=== PATIENT | female | born 1945 | race American Indian/Alaskan Native ===

== ENCOUNTER 2018-06-22 15:30 | Inpatient (IN) | payer MEDICARE, BC ==
[2018-06-20 03:23] VITALS: BMI 34.0
[2018-06-22] MEDS: Albuterol-Ipratrop 3 mg / 0.5 (3 ml) UD IH SCH ×2 (17:27→19:27)
--- NOTE | 2018-06-22 18:38 | CP.PCM.HP ---
History of Present Illness - History of Present Illness History of Present Illness: 73 yo female with history of HTN, HLD and Asthma brought in and admitted in [facility] on 06/19/18 after she suddenly had numbness and weakness of the left side which was preceded with right sided headache. 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 When patient was hemodynamically and neurologically stable she was transferred to [facility] and admitted in Acute Rehab to continue her therapy. Present on Admission - Present on Admission Any Indicators Present on Admission: No History of DVT/PE: No History of Uncontrolled Diabetes: No Urinary Catheter: No Decubitus Ulcer Present: No Review of Systems - Review of Systems All systems: reviewed and no additional remarkable complaints except (aside from those mentioned above, 12 point system review were negative by me) Past Patient History - Infectious Disease Hx of Infectious Diseases: None - Tetanus Immunizations Tetanus Immunization: Unknown - Past Medical History & Family History Past Medical History?: Yes - Past Social History Smoking Status: Former Smoker Chewing Tobacco Use: No Cigar Use: No Alcohol: Social Drugs: Denies Home Situation {Lives}: With Family - CARDIAC Hx Hypertension: Yes - PULMONARY Hx Asthma: Yes (last attack 09/2013) - NEUROLOGICAL Hx Neurological Disorder: Yes HX Cerebrovascular Accident: Yes (05/2018) Other/Comment: occasional numbness and tingling in arms b/l - HEENT Hx HEENT Problems: Yes Hx Cataracts: Yes (left eye) - RENAL Hx Chronic Kidney Disease: No - ENDOCRINE/METABOLIC Hx Endocrine Disorders: No - HEMATOLOGICAL/ONCOLOGICAL Hx Anemia: Yes - INTEGUMENTARY Hx Dermatological Problems: No - MUSCULOSKELETAL/RHEUMATOLOGICAL Hx Arthritis: Yes (Maurizio shoulders) Hx Falls: No Hx Fractures: Yes (R hand Fx) - GASTROINTESTINAL Hx Gastrointestinal Disorders: No - GENITOURINARY/GYNECOLOGICAL Hx Genitourinary Disorders: No - PSYCHIATRIC Hx Psychophysiologic Disorder: No Hx Substance Use: No - SURGICAL HISTORY Hx Hysterectomy: Yes Hx Tonsillectomy: Yes (1954) - ANESTHESIA Hx Anesthesia: Yes Hx Anesthesia Reactions: No Hx Malignant Hyperthermia: No Meds Allergies/Adverse Reactions: Allergies Allergy/AdvReac Type Severity Reaction Status Date / Time No Known Allergies Allergy Verified 04/18/14 14:37 Physical Exam - Constitutional Appears: No Acute Distress - Head Exam Head Exam: ATRAUMATIC - Eye Exam Eye Exam: absent: Scleral icterus - ENT Exam ENT Exam: Mucous Membranes Moist - Neck Exam Neck exam: Negative for: Meningismus - Respiratory Exam Respiratory Exam: absent: Rales, Rhonchi, Wheezes, Respiratory Distress - Cardiovascular Exam Cardiovascular Exam: REGULAR RHYTHM, +S1, +S2 - GI/Abdominal Exam GI & Abdominal Exam: Soft. absent: Tenderness - Rectal Exam Rectal Exam: Deferred - Extremities Exam Extremities exam: Negative for: calf tenderness, pedal edema - Back Exam Back exam: absent: tenderness - Neurological Exam Neurological exam: Alert, Oriented x3 - Psychiatric Exam Psychiatric exam: Normal Affect - Skin Skin Exam: Dry, Intact Results - Vital Signs Recent Vital Signs: Last Vital Signs Temp 97.3 F L 06/22/18 16:00 Pulse 62 06/22/18 16:41 Resp 18 06/22/18 16:41 BP 150/81 06/22/18 16:00 Pulse Ox 99 06/22/18 16:41 Assessment & Plan - Assessment and Plan (Free Text) Assessment: 73 yo female with history of HTN, HLD and Asthma brought in and admitted in [facility] on 06/19/18 after she suddenly had numbness and weakness of the left side which was preceded with right sided headache. 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 When patient was hemodynamically and neurologically stable she was transferred to [facility] and admitted in Acute Rehab to continue her therapy. 1. Acute Right Basal Ganglia Infarct physiatry consult with Dr Garcia continue PT/OT continue Plavix, ASA, statin and BP control 2. HTN BP stable continue Amlodipine, Hydralazine, HCTZ, Lisinopril, Metoprolol 3. HLD continue Lipitor 10mg PO daily 4. Asthma asymptomatic 5. DVT prophylaxis Lovenox 40mg SC daily
[2018-06-22] MEDS: Ergocalciferol 50,000 Intl Units Cap PO SCH (19:00)
--- NOTE | 2018-06-22 19:33 | CP.PCM.CON ---
History of Present Illness - History of Present Illness History of Present Illness: Dr Garcia PMR consultation on Jayson Tobias, born 1945, who has been admitted to [facility] for acute inpatient rehabilitation following a right CVA (MCA distribution) with left HP. She has had some good early neuro improvement. Review of Systems - Constitutional Constitutional: absent: Anorexia, Chills - EENT Nose/Mouth/Throat: absent: Nasal Congestion - Cardiovascular Cardiovascular: absent: Chest Pain - Respiratory Respiratory: absent: Cough, Hemoptysis - Gastrointestinal Gastrointestinal: absent: Abdominal Pain, Constipation - Musculoskeletal Musculoskeletal: absent: Back Pain - Integumentary Integumentary: absent: Bleeding Lesions - Neurological Neurological: absent: Abnormal Movements - Psychiatric Psychiatric: absent: Anxiety Past Patient History - Infectious Disease Hx of Infectious Diseases: None - Tetanus Immunizations Tetanus Immunization: Unknown - Past Medical History & Family History Past Medical History?: Yes - Past Social History Smoking Status: Former Smoker Chewing Tobacco Use: No Cigar Use: No Alcohol: Social Drugs: Denies Home Situation {Lives}: With Family - CARDIAC Hx Hypertension: Yes - PULMONARY Hx Asthma: Yes (last attack 09/2013) - NEUROLOGICAL Hx Neurological Disorder: Yes HX Cerebrovascular Accident: Yes (05/2018) Other/Comment: occasional numbness and tingling in arms b/l - HEENT Hx HEENT Problems: Yes Hx Cataracts: Yes (left eye) - RENAL Hx Chronic Kidney Disease: No - ENDOCRINE/METABOLIC Hx Endocrine Disorders: No - HEMATOLOGICAL/ONCOLOGICAL Hx Anemia: Yes - INTEGUMENTARY Hx Dermatological Problems: No - MUSCULOSKELETAL/RHEUMATOLOGICAL Hx Arthritis: Yes (Maurizio shoulders) Hx Falls: No Hx Fractures: Yes (R hand Fx) - GASTROINTESTINAL Hx Gastrointestinal Disorders: No - GENITOURINARY/GYNECOLOGICAL Hx Genitourinary Disorders: No - PSYCHIATRIC Hx Psychophysiologic Disorder: No Hx Substance Use: No - SURGICAL HISTORY Hx Hysterectomy: Yes Hx Tonsillectomy: Yes (1954) - ANESTHESIA Hx Anesthesia: Yes Hx Anesthesia Reactions: No Hx Malignant Hyperthermia: No Meds Allergies/Adverse Reactions: Allergies Allergy/AdvReac Type Severity Reaction Status Date / Time No Known Allergies Allergy Verified 04/18/14 14:37 - Medications Medications: Current Medications Acetaminophen (Tylenol 325mg Tab) 650 mg PO Q8 [facility] Albuterol/Ipratropium (Duoneb 3 Mg/0.5 Mg (3 Ml) Ud) 3 ml IH RQID [facility] Last Admin: 06/22/18 19:27 Dose: 3 ml Amlodipine Besylate (Norvasc) 10 mg PO DAILY [facility] Aspirin (Ecotrin) 325 mg PO DAILY [facility] Atorvastatin Calcium (Lipitor) 10 mg PO HS [facility] Clopidogrel Bisulfate (Plavix) 75 mg PO DAILY [facility] Ergocalciferol (Drisdol 50,000 Intl Units Cap) 1 cap PO Q7D [facility] Famotidine (Pepcid) 40 mg PO HS [facility] Heparin Sodium (Porcine) (Heparin) 5,000 units SC Q12 [facility] PRN Reason: Protocol Hydralazine HCl (Apresoline) 50 mg PO Q12 [facility] Hydrochlorothiazide (Hydrodiuril) 25 mg PO DAILY [facility] Levothyroxine Sodium (Synthroid) 50 mcg PO 0600 [facility] Lisinopril (Zestril) 40 mg PO QPM [facility] Metoprolol Tartrate (Lopressor) 50 mg PO Q12 [facility] Physical Exam - Constitutional Appears: No Acute Distress - Head Exam Head Exam: ATRAUMATIC, NORMAL INSPECTION, NORMOCEPHALIC - Eye Exam Eye Exam: EOMI - ENT Exam ENT Exam: Mucous Membranes Moist - Respiratory Exam Respiratory Exam: NORMAL BREATHING PATTERN - GI/Abdominal Exam GI & Abdominal Exam: Distended, Normal Bowel Sounds. absent: Firm - Extremities Exam Extremities exam: Negative for: calf tenderness - Neurological Exam Neurological exam: Alert, CN II-XII Intact, Oriented x3 - Psychiatric Exam Psychiatric exam: Normal Affect, Normal Mood Results - Vital Signs Recent Vital Signs: Last Vital Signs Temp 97.3 F L 06/22/18 16:00 Pulse 62 06/22/18 19:28 Resp 18 06/22/18 16:41 BP 150/81 06/22/18 16:00 Pulse Ox 99 06/22/18 16:41 Assessment & Plan - Assessment and Plan (Free Text) Assessment: PT/OT to continue to help increase functional independence Team conference for d/c planning Pain: controlled Vascular: no evidence of DVT GI: No evidence of constipation or diarrhea Patient is an excellent acute rehabilitation candidate and will have focused PT , OT and recreational therapy to help facilitate a safe and appropriate d/c plan Impairment code 01.1 has 4/5 left UE/LE strength with good overall prognosis right hand dominant
--- NOTE | 2018-06-22 19:35 | PCM.OPOC ---
Physiatry Overall Plan of Care - Overall Plan of Care Estimated Length of Stay in Weeks: 3 Rehab Impairment: Mobility, Gait, Balance, Coordination Etiologic Diagnosis: Cerebrovascular Accident Rehab/Medical Prognosis: Good - Anticipated Interventions Physical Therapy:: Yes Occupational Therapy:: Yes Recreational Therapy:: Yes - Therapy Goals Bed Mobility: Supervision Ambulation: Supervision Functional Positional Changes:: Supervision - Discharge Plan Discharge Destination: Home
[2018-06-23] MEDS: Levothyroxine 50 MCG TAB PO SCH ×2 (06:22→07:30)
[2018-06-23] MEDS: Albuterol-Ipratrop 3 mg / 0.5 (3 ml) UD IH SCH ×4 (07:36→19:25)
[2018-06-23] MEDS: Aspirin 325 mg EC Tablets PO SCH (09:12)
--- NOTE | 2018-06-23 17:18 | CP.PCM.PN ---
Subjective - Date & Time of Evaluation Date of Evaluation: 06/23/18 Time of Evaluation: 13:40 - Subjective Subjective: Patient seen and examined. Denied any complaint Objective - Vital Signs/Intake and Output Vital Signs (last 24 hours): Temp Pulse Resp BP Pulse Ox 98.0 F 73 20 136/79 100 06/23/18 08:40 06/23/18 17:00 06/23/18 08:40 06/23/18 17:00 06/23/18 08:46 - Medications Medications: Current Medications Acetaminophen (Tylenol 325mg Tab) 650 mg PO Q8 [facility] Last Admin: 06/23/18 13:22 Dose: 650 mg Albuterol/Ipratropium (Duoneb 3 Mg/0.5 Mg (3 Ml) Ud) 3 ml IH RQID [facility] Last Admin: 06/23/18 15:48 Dose: Not Given Amlodipine Besylate (Norvasc) 10 mg PO DAILY [facility] Aspirin (Ecotrin) 325 mg PO DAILY [facility] Last Admin: 06/23/18 09:12 Dose: 325 mg Atorvastatin Calcium (Lipitor) 10 mg PO HS [facility] Last Admin: 06/22/18 21:00 Dose: 10 mg Clopidogrel Bisulfate (Plavix) 75 mg PO DAILY [facility] Last Admin: 06/23/18 09:14 Dose: 75 mg Ergocalciferol (Drisdol 50,000 Intl Units Cap) 1 cap PO Q7D [facility] Last Admin: 06/22/18 19:00 Dose: 1 cap Famotidine (Pepcid) 40 mg PO HS [facility] Last Admin: 06/22/18 21:00 Dose: 40 mg Heparin Sodium (Porcine) (Heparin) 5,000 units SC Q12 [facility] PRN Reason: Protocol Last Admin: 06/23/18 09:12 Dose: 5,000 units Hydralazine HCl (Apresoline) 50 mg PO Q12 [facility] Last Admin: 06/23/18 09:12 Dose: 50 mg Hydrochlorothiazide (Hydrodiuril) 25 mg PO DAILY [facility] Levothyroxine Sodium (Synthroid) 50 mcg PO 0600 [facility] Last Admin: 06/23/18 07:30 Dose: 50 mcg Lisinopril (Zestril) 40 mg PO QPM@1700 [facility] Last Admin: 06/23/18 17:00 Dose: 40 mg Metoprolol Tartrate (Lopressor) 50 mg PO Q12 [facility] - Constitutional Appears: No Acute Distress - Head Exam Head Exam: ATRAUMATIC - Eye Exam Eye Exam: absent: Scleral icterus - ENT Exam ENT Exam: Mucous Membranes Moist - Neck Exam Neck Exam: absent: Meningismus - Respiratory Exam Respiratory Exam: absent: Rales, Rhonchi, Wheezes, Respiratory Distress - Cardiovascular Exam Cardiovascular Exam: REGULAR RHYTHM, +S1, +S2 - GI/Abdominal Exam GI & Abdominal Exam: Soft. absent: Tenderness - Rectal Exam Rectal Exam: Deferred - Neurological Exam Neurological Exam: Alert, Oriented x3 - Psychiatric Exam Psychiatric exam: Normal Affect - Skin Skin Exam: Dry, Intact Assessment and Plan - Assessment and Plan (Free Text) Assessment: 73 yo female with history of HTN, HLD and Asthma brought in and admitted in [facility] on 06/19/18 after she suddenly had numbness and weakness of the left side which was preceded with right sided headache. 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 When patient was hemodynamically and neurologically stable she was transferred to [facility] and admitted in Acute Rehab to continue her therapy. 1. Acute Right Basal Ganglia Infarct continue Plavix, ASA, statin and BP control physiatry consult with Dr Garcia continue PT/OT 2. HTN BP stable continue Amlodipine, Hydralazine, HCTZ, Lisinopril, Metoprolol 3. HLD continue Lipitor 10mg PO daily 4. Asthma asymptomatic 5. DVT prophylaxis Lovenox 40mg SC daily
[2018-06-24] MEDS: Levothyroxine 50 MCG TAB PO SCH (06:29)
[2018-06-24] MEDS: Albuterol-Ipratrop 3 mg / 0.5 (3 ml) UD IH SCH ×4 (07:51→19:54)
[2018-06-24] MEDS: Aspirin 325 mg EC Tablets PO SCH (08:49)
[2018-06-24] MEDS: Enoxaparin 40 mg Syringe SC SCH (08:49)
--- NOTE | 2018-06-24 14:11 | CP.PCM.PN ---
Subjective - Date & Time of Evaluation Date of Evaluation: 06/24/18 Time of Evaluation: 14:10 - Subjective Subjective: Patient seen in the room, family present doing well denies sob/cp good coordination and strength continue current care Objective - Vital Signs/Intake and Output Vital Signs (last 24 hours): Temp Pulse Resp BP Pulse Ox 98.2 F 65 20 139/67 98 06/24/18 08:20 06/24/18 08:48 06/24/18 08:20 06/24/18 08:48 06/24/18 08:20 - Medications Medications: Current Medications Acetaminophen (Tylenol 325mg Tab) 650 mg PO Q8 [facility] Last Admin: 06/24/18 13:29 Dose: 650 mg Albuterol/Ipratropium (Duoneb 3 Mg/0.5 Mg (3 Ml) Ud) 3 ml IH RQID [facility] Last Admin: 06/24/18 11:18 Dose: Not Given Amlodipine Besylate (Norvasc) 10 mg PO DAILY [facility] Last Admin: 06/24/18 08:48 Dose: 10 mg Aspirin (Ecotrin) 325 mg PO DAILY [facility] Last Admin: 06/24/18 08:49 Dose: 325 mg Atorvastatin Calcium (Lipitor) 10 mg PO HS [facility] Last Admin: 06/23/18 21:08 Dose: 10 mg Clopidogrel Bisulfate (Plavix) 75 mg PO DAILY [facility] Last Admin: 06/24/18 08:49 Dose: 75 mg Enoxaparin Sodium (Lovenox) 40 mg SC DAILY [facility] PRN Reason: Protocol Last Admin: 06/24/18 08:49 Dose: 40 mg Ergocalciferol (Drisdol 50,000 Intl Units Cap) 1 cap PO Q7D [facility] Last Admin: 06/22/18 19:00 Dose: 1 cap Famotidine (Pepcid) 40 mg PO HS [facility] Last Admin: 06/23/18 21:08 Dose: 40 mg Hydralazine HCl (Apresoline) 50 mg PO Q12 [facility] Last Admin: 06/24/18 08:48 Dose: 50 mg Hydrochlorothiazide (Hydrodiuril) 25 mg PO DAILY [facility] Last Admin: 06/24/18 08:49 Dose: 25 mg Levothyroxine Sodium (Synthroid) 50 mcg PO 0600 [facility] Last Admin: 06/24/18 06:29 Dose: 50 mcg Lisinopril (Zestril) 40 mg PO QPM@1700 [facility] Last Admin: 06/23/18 17:00 Dose: 40 mg Metoprolol Tartrate (Lopressor) 50 mg PO Q12 [facility] Last Admin: 06/24/18 08:48 Dose: 50 mg
[2018-06-25] MEDS: Levothyroxine 50 MCG TAB PO SCH (06:08)
[2018-06-25] MEDS: Albuterol-Ipratrop 3 mg / 0.5 (3 ml) UD IH SCH ×4 (07:38→19:42)
[2018-06-25] MEDS: Aspirin 325 mg EC Tablets PO SCH (08:07)
[2018-06-25] MEDS: Enoxaparin 40 mg Syringe SC SCH (08:08)
--- NOTE | 2018-06-25 18:11 | CP.PCM.PN ---
Subjective - Date & Time of Evaluation Date of Evaluation: 06/25/18 Time of Evaluation: 11:00 - Subjective Subjective: Patient seen and examined today. She states that she feels better. Has no complaint. Objective - Vital Signs/Intake and Output Vital Signs (last 24 hours): Temp Pulse Resp BP Pulse Ox 97.5 F L 65 22 100/54 L 99 06/25/18 07:54 06/25/18 16:29 06/25/18 07:54 06/25/18 16:29 06/25/18 07:54 - Medications Medications: Current Medications Acetaminophen (Tylenol 325mg Tab) 650 mg PO Q8 [facility] Last Admin: 06/25/18 13:47 Dose: 650 mg Albuterol/Ipratropium (Duoneb 3 Mg/0.5 Mg (3 Ml) Ud) 3 ml IH RQID [facility] Last Admin: 06/25/18 15:13 Dose: 3 ml Amlodipine Besylate (Norvasc) 10 mg PO DAILY [facility] Last Admin: 06/25/18 08:08 Dose: 10 mg Aspirin (Ecotrin) 325 mg PO DAILY [facility] Last Admin: 06/25/18 08:07 Dose: 325 mg Atorvastatin Calcium (Lipitor) 10 mg PO HS [facility] Last Admin: 06/24/18 21:21 Dose: 10 mg Clopidogrel Bisulfate (Plavix) 75 mg PO DAILY [facility] Last Admin: 06/25/18 08:07 Dose: 75 mg Enoxaparin Sodium (Lovenox) 40 mg SC DAILY [facility] PRN Reason: Protocol Last Admin: 06/25/18 08:08 Dose: 40 mg Ergocalciferol (Drisdol 50,000 Intl Units Cap) 1 cap PO Q7D [facility] Last Admin: 06/22/18 19:00 Dose: 1 cap Famotidine (Pepcid) 40 mg PO HS [facility] Last Admin: 06/24/18 21:21 Dose: 40 mg Hydralazine HCl (Apresoline) 50 mg PO Q12 [facility] Last Admin: 06/25/18 08:08 Dose: 50 mg Hydrochlorothiazide (Hydrodiuril) 25 mg PO DAILY [facility] Last Admin: 06/25/18 08:06 Dose: 25 mg Levothyroxine Sodium (Synthroid) 50 mcg PO 0600 [facility] Last Admin: 06/25/18 06:08 Dose: 50 mcg Lisinopril (Zestril) 40 mg PO QPM@1700 [facility] Last Admin: 06/25/18 16:29 Dose: Not Given Metoprolol Tartrate (Lopressor) 50 mg PO Q12 [facility] Last Admin: 06/25/18 08:07 Dose: 50 mg - Additional Findings Additional findings: Physical exam: Constitutional- cooperative, awake, alert Head- NCAT, PERRL Eye- PERRL, EOMI ENT- normal exam, MMM. Neck- normal inspection, supple, no JVD Respiratory- CTAB, no wheezes rales rhonchi Cardiovascular- RRR, +S1, +S2 no MRG GI/Abdominal- normal bowel sounds, soft, no mass, no hsm Skin- warm, dry Extremities Exam- normal capillary refill, normal inspection Neurological Exam- alert, awake, oriented + left sided weakness Psych- normal mood, normal affect Assessment and Plan - Assessment and Plan (Free Text) Plan: 73 yo female with history of HTN, HLD and Asthma brought in and admitted in [facility] on 06/19/18 after she suddenly had numbness and weakness of the left side which was preceded with right sided headache. 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 When patient was hemodynamically and neurologically stable she was transferred to [facility] and admitted in Acute Rehab to continue her therapy. 1. Acute Right Basal Ganglia Infarct physiatry consult with Dr Garcia continue PT/OT continue Plavix, ASA, statin and BP control 2. HTN BP stable continue Amlodipine, Hydralazine, HCTZ, Lisinopril, Metoprolol 3. HLD continue Lipitor 10mg PO daily 4. Asthma asymptomatic 5. DVT prophylaxis Lovenox 40mg SC daily
[2018-06-26] MEDS: Levothyroxine 50 MCG TAB PO SCH (06:09)
[2018-06-26 06:52] LABS: HEMOGLOBIN 12.3 g/dL (12.0-16.0); MEAN CELL VOLUME 78.6 fl (81.0-99.0); MEAN CORPUSCULAR HEMOGLOBIN 26.2 pg (27.0-31.0); MEAN CORPUSCULAR HGB CONC 33.3 g/dL (33.0-37.0); RBC 4.71 Mil/uL (3.80-5.20); RED CELL DISTRIBUTION WIDTH 16.8 % (11.5-14.5); WHITE BLOOD COUNT 3.9 K/uL (4.8-10.8)
[2018-06-26 07:06] LABS: CALCIUM 9.7 mg/dL (8.4-10.2)
[2018-06-26] MEDS: Albuterol-Ipratrop 3 mg / 0.5 (3 ml) UD IH SCH ×4 (07:33→20:03)
--- NOTE | 2018-06-26 08:28 | CP.PCM.PN ---
Subjective - Date & Time of Evaluation Date of Evaluation: 06/26/18 Time of Evaluation: 08:27 - Subjective Subjective: Patient seen in room up and ready for therapy denies sob/cp very motivated and continues to make progress continue current care Objective - Vital Signs/Intake and Output Vital Signs (last 24 hours): Temp Pulse Resp BP Pulse Ox 97.2 F L 68 20 119/65 98 06/26/18 07:56 06/26/18 07:56 06/26/18 07:56 06/26/18 07:56 06/26/18 07:56 - Medications Medications: Current Medications Acetaminophen (Tylenol 325mg Tab) 650 mg PO Q8 [facility] Last Admin: 06/26/18 06:00 Dose: 650 mg Albuterol/Ipratropium (Duoneb 3 Mg/0.5 Mg (3 Ml) Ud) 3 ml IH RQID [facility] Last Admin: 06/26/18 07:33 Dose: 3 ml Amlodipine Besylate (Norvasc) 10 mg PO DAILY [facility] Last Admin: 06/25/18 08:08 Dose: 10 mg Aspirin (Ecotrin) 325 mg PO DAILY [facility] Last Admin: 06/25/18 08:07 Dose: 325 mg Atorvastatin Calcium (Lipitor) 10 mg PO HS [facility] Last Admin: 06/25/18 21:22 Dose: 10 mg Clopidogrel Bisulfate (Plavix) 75 mg PO DAILY [facility] Last Admin: 06/25/18 08:07 Dose: 75 mg Enoxaparin Sodium (Lovenox) 40 mg SC DAILY [facility] PRN Reason: Protocol Last Admin: 06/25/18 08:08 Dose: 40 mg Ergocalciferol (Drisdol 50,000 Intl Units Cap) 1 cap PO Q7D [facility] Last Admin: 06/22/18 19:00 Dose: 1 cap Famotidine (Pepcid) 40 mg PO HS [facility] Last Admin: 06/25/18 21:24 Dose: 40 mg Hydralazine HCl (Apresoline) 50 mg PO Q12 [facility] Last Admin: 06/25/18 21:23 Dose: 50 mg Hydrochlorothiazide (Hydrodiuril) 25 mg PO DAILY [facility] Last Admin: 06/25/18 08:06 Dose: 25 mg Levothyroxine Sodium (Synthroid) 50 mcg PO 0600 [facility] Last Admin: 06/26/18 06:09 Dose: 50 mcg Lisinopril (Zestril) 40 mg PO QPM@1700 [facility] Last Admin: 06/25/18 16:29 Dose: Not Given Metoprolol Tartrate (Lopressor) 50 mg PO Q12 [facility] Last Admin: 06/25/18 21:23 Dose: 50 mg - Labs Labs: 06/26/18 05:30 06/26/18 05:30
[2018-06-26] MEDS: Enoxaparin 40 mg Syringe SC SCH (08:59)
[2018-06-26] MEDS: Aspirin 325 mg EC Tablets PO SCH (09:01)
[2018-06-26] MEDS ORDERED: Artificial Tears Opht Soln OU PRN (18:28)
[2018-06-26] MEDS ORDERED: Lubricant Eye Drops UD OU PRN ×2 (18:45)
[2018-06-27] MEDS: Levothyroxine 50 MCG TAB PO SCH (06:06)
[2018-06-27] MEDS: Albuterol-Ipratrop 3 mg / 0.5 (3 ml) UD IH SCH ×4 (08:22→19:27)
[2018-06-27] MEDS: Enoxaparin 40 mg Syringe SC SCH (08:59)
[2018-06-27] MEDS: Aspirin 325 mg EC Tablets PO SCH (09:01)
[2018-06-27] MEDS: Multivitamin With Minerals Tab PO SCH (11:58)
[2018-06-28] MEDS: Levothyroxine 50 MCG TAB PO SCH (06:19)
[2018-06-28] MEDS: Albuterol-Ipratrop 3 mg / 0.5 (3 ml) UD IH SCH ×4 (07:58→19:06)
[2018-06-28] MEDS: Multivitamin With Minerals Tab PO SCH (08:05)
[2018-06-28] MEDS: Aspirin 325 mg EC Tablets PO SCH (08:06)
[2018-06-28] MEDS: Enoxaparin 40 mg Syringe SC SCH (08:06)
--- NOTE | 2018-06-28 15:42 | CP.PCM.CON ---
History of Present Illness - History of Present Illness History of Present Illness: 73 yo patient, with PMHx of HTN, HLD, CVA, seen and evaluated at bedside for elongated painful nails. She states that she is a Dr. Mendoza patient and is seen in his office. She states that her nails cause her pain in her shoes when she ambulates and participates in therapy. She is concerned her nails will grow into her skin if they are not cut. She states that she is currently unable take care of them herself due to her hospital stay. Denies any other pedal complaints. Patient denies N/V/F/SOB/CP. PMHx: HTN, HLD, CVA ALL: NKDA Review of Systems - Review of Systems Review of Systems: As per HPI Past Patient History - Infectious Disease Hx of Infectious Diseases: None - Tetanus Immunizations Tetanus Immunization: Unknown - Past Medical History & Family History Past Medical History?: Yes - Past Social History Smoking Status: Former Smoker Chewing Tobacco Use: No Cigar Use: No Alcohol: Social Drugs: Denies Home Situation {Lives}: With Family - CARDIAC Hx Hypertension: Yes - PULMONARY Hx Asthma: Yes (last attack 09/2013) - NEUROLOGICAL Hx Neurological Disorder: Yes HX Cerebrovascular Accident: Yes (05/2018) Other/Comment: occasional numbness and tingling in arms b/l - HEENT Hx HEENT Problems: Yes Hx Cataracts: Yes (left eye) - RENAL Hx Chronic Kidney Disease: No - ENDOCRINE/METABOLIC Hx Endocrine Disorders: No - HEMATOLOGICAL/ONCOLOGICAL Hx Anemia: Yes - INTEGUMENTARY Hx Dermatological Problems: No - MUSCULOSKELETAL/RHEUMATOLOGICAL Hx Arthritis: Yes (Maurizio shoulders) Hx Falls: No Hx Fractures: Yes (R hand Fx) - GASTROINTESTINAL Hx Gastrointestinal Disorders: No - GENITOURINARY/GYNECOLOGICAL Hx Genitourinary Disorders: No - PSYCHIATRIC Hx Psychophysiologic Disorder: No Hx Substance Use: No - SURGICAL HISTORY Hx Hysterectomy: Yes Hx Tonsillectomy: Yes (1954) - ANESTHESIA Hx Anesthesia: Yes Hx Anesthesia Reactions: No Hx Malignant Hyperthermia: No Meds Allergies/Adverse Reactions: Allergies Allergy/AdvReac Type Severity Reaction Status Date / Time No Known Allergies Allergy Verified 04/18/14 14:37 - Medications Medications: Current Medications Acetaminophen (Tylenol 325mg Tab) 650 mg PO Q8 PRN PRN Reason: Pain scale 1-10. Last Admin: 06/28/18 01:09 Dose: 650 mg Albuterol/Ipratropium (Duoneb 3 Mg/0.5 Mg (3 Ml) Ud) 3 ml IH RQID [facility] Last Admin: 06/28/18 15:34 Dose: Not Given Amlodipine Besylate (Norvasc) 10 mg PO DAILY [facility] Last Admin: 06/28/18 08:05 Dose: 10 mg Artificial Tears (Refresh Opth Soln) 0.6 ml OU Q6 PRN PRN Reason: Dry eyes Aspirin (Ecotrin) 325 mg PO DAILY [facility] Last Admin: 06/28/18 08:06 Dose: 325 mg Atorvastatin Calcium (Lipitor) 10 mg PO HS [facility] Last Admin: 06/27/18 21:47 Dose: 10 mg Clopidogrel Bisulfate (Plavix) 75 mg PO DAILY [facility] Last Admin: 06/28/18 08:04 Dose: 75 mg Enoxaparin Sodium (Lovenox) 40 mg SC DAILY [facility] PRN Reason: Protocol Last Admin: 06/28/18 08:06 Dose: 40 mg Ergocalciferol (Drisdol 50,000 Intl Units Cap) 1 cap PO Q7D [facility] Last Admin: 06/22/18 19:00 Dose: 1 cap Famotidine (Pepcid) 40 mg PO HS [facility] Last Admin: 06/27/18 21:47 Dose: 40 mg Hydralazine HCl (Apresoline) 50 mg PO Q12 [facility] Last Admin: 06/28/18 08:05 Dose: 50 mg Hydrochlorothiazide (Hydrodiuril) 25 mg PO DAILY [facility] Last Admin: 06/28/18 08:05 Dose: 25 mg Levothyroxine Sodium (Synthroid) 50 mcg PO 0600 [facility] Last Admin: 06/28/18 06:19 Dose: 50 mcg Lisinopril (Zestril) 40 mg PO QPM@1700 [facility] Last Admin: 06/27/18 16:48 Dose: Not Given Metoprolol Tartrate (Lopressor) 50 mg PO Q12 [facility] Last Admin: 06/28/18 08:03 Dose: 50 mg Multivitamins/Minerals (Therapeutic-M Tab) 1 tab PO DAILY [facility] Last Admin: 06/28/18 08:05 Dose: 1 tab Physical Exam - Constitutional Appears: Well, Non-toxic, No Acute Distress - Head Exam Head Exam: ATRAUMATIC, NORMOCEPHALIC - Extremities Exam Additional comments: Vascular: DP/PT 1/4 bilaterally, CFT <3 to all 10 digits, no edema noted Ortho: Painful hallux nail medial border bilaterally. MMT 4/5 bilaterally Neuro: Gross and protective sensation intact bilaterally Derm: Dystrophic, thickened, mycotic nails x10. Elongated hallux nails bilaterally. No open lesions, no erythema, no clinical signs of infection - Neurological Exam Neurological exam: Alert, Oriented x3 - Psychiatric Exam Psychiatric exam: Normal Affect, Normal Mood Results - Vital Signs Recent Vital Signs: Last Vital Signs Temp 97.7 F 06/28/18 07:50 Pulse 70 06/28/18 15:12 Resp 20 06/28/18 07:50 BP 114/61 06/28/18 15:12 Pulse Ox 98 06/28/18 07:50 - Labs Result Diagrams: 06/26/18 05:30 06/26/18 05:30 Assessment & Plan - Assessment and Plan (Free Text) Assessment: 73 yo patient, with PMHx of HTN, HLD, CVA, seen and evaluated at bedside for elongated painful nails. Plan: Patient seen and evaluated with all question and concerns addressed Patient discussed in detail with Dr. Mendoza Bilateral hallux nails debrided with a large nail nipper without incident Podiatry will s/o at this time Thank you for the consult - Date & Time Date: 06/28/18 Time: 15:55
--- NOTE | 2018-06-28 17:29 | CP.PCM.PN ---
Subjective - Date & Time of Evaluation Date of Evaluation: 06/28/18 Time of Evaluation: 17:28 - Subjective Subjective: Patient seen in the room doing well denies sob/cp very happy with treatment and progress continue current care Objective - Vital Signs/Intake and Output Vital Signs (last 24 hours): Temp Pulse Resp BP Pulse Ox 97.7 F 62 20 114/61 99 06/28/18 07:50 06/28/18 16:09 06/28/18 07:50 06/28/18 15:12 06/28/18 16:09 - Medications Medications: Current Medications Acetaminophen (Tylenol 325mg Tab) 650 mg PO Q8 PRN PRN Reason: Pain scale 1-10. Last Admin: 06/28/18 01:09 Dose: 650 mg Albuterol/Ipratropium (Duoneb 3 Mg/0.5 Mg (3 Ml) Ud) 3 ml IH RQID [facility] Last Admin: 06/28/18 15:34 Dose: Not Given Amlodipine Besylate (Norvasc) 10 mg PO DAILY [facility] Last Admin: 06/28/18 08:05 Dose: 10 mg Artificial Tears (Refresh Opth Soln) 0.6 ml OU Q6 PRN PRN Reason: Dry eyes Aspirin (Ecotrin) 325 mg PO DAILY [facility] Last Admin: 06/28/18 08:06 Dose: 325 mg Atorvastatin Calcium (Lipitor) 10 mg PO HS [facility] Last Admin: 06/27/18 21:47 Dose: 10 mg Clopidogrel Bisulfate (Plavix) 75 mg PO DAILY [facility] Last Admin: 06/28/18 08:04 Dose: 75 mg Enoxaparin Sodium (Lovenox) 40 mg SC DAILY [facility] PRN Reason: Protocol Last Admin: 06/28/18 08:06 Dose: 40 mg Ergocalciferol (Drisdol 50,000 Intl Units Cap) 1 cap PO Q7D [facility] Last Admin: 06/22/18 19:00 Dose: 1 cap Famotidine (Pepcid) 40 mg PO HS [facility] Last Admin: 06/27/18 21:47 Dose: 40 mg Hydralazine HCl (Apresoline) 50 mg PO Q12 [facility] Last Admin: 06/28/18 08:05 Dose: 50 mg Hydrochlorothiazide (Hydrodiuril) 25 mg PO DAILY [facility] Last Admin: 06/28/18 08:05 Dose: 25 mg Levothyroxine Sodium (Synthroid) 50 mcg PO 0600 [facility] Last Admin: 06/28/18 06:19 Dose: 50 mcg Lisinopril (Zestril) 40 mg PO QPM@1700 [facility] Last Admin: 06/27/18 16:48 Dose: Not Given Metoprolol Tartrate (Lopressor) 50 mg PO Q12 [facility] Last Admin: 06/28/18 08:03 Dose: 50 mg Multivitamins/Minerals (Therapeutic-M Tab) 1 tab PO DAILY [facility] Last Admin: 06/28/18 08:05 Dose: 1 tab - Labs Labs: 06/26/18 05:30 06/26/18 05:30
--- NOTE | 2018-06-28 18:50 | CP.PCM.PN ---
Subjective - Date & Time of Evaluation Date of Evaluation: 06/28/18 Time of Evaluation: 12:10 - Subjective Subjective: Patient seen and examined. Complained of constipation. Objective - Vital Signs/Intake and Output Vital Signs (last 24 hours): Temp Pulse Resp BP Pulse Ox 97.7 F 62 20 114/61 99 06/28/18 07:50 06/28/18 16:09 06/28/18 07:50 06/28/18 15:12 06/28/18 16:09 - Medications Medications: Current Medications Acetaminophen (Tylenol 325mg Tab) 650 mg PO Q8 PRN PRN Reason: Pain scale 1-10. Last Admin: 06/28/18 01:09 Dose: 650 mg Albuterol/Ipratropium (Duoneb 3 Mg/0.5 Mg (3 Ml) Ud) 3 ml IH RQID [facility] Last Admin: 06/28/18 15:34 Dose: Not Given Amlodipine Besylate (Norvasc) 10 mg PO DAILY [facility] Last Admin: 06/28/18 08:05 Dose: 10 mg Artificial Tears (Refresh Opth Soln) 0.6 ml OU Q6 PRN PRN Reason: Dry eyes Aspirin (Ecotrin) 325 mg PO DAILY [facility] Last Admin: 06/28/18 08:06 Dose: 325 mg Atorvastatin Calcium (Lipitor) 10 mg PO HS [facility] Last Admin: 06/27/18 21:47 Dose: 10 mg Clopidogrel Bisulfate (Plavix) 75 mg PO DAILY [facility] Last Admin: 06/28/18 08:04 Dose: 75 mg Enoxaparin Sodium (Lovenox) 40 mg SC DAILY [facility] PRN Reason: Protocol Last Admin: 06/28/18 08:06 Dose: 40 mg Ergocalciferol (Drisdol 50,000 Intl Units Cap) 1 cap PO Q7D [facility] Last Admin: 06/22/18 19:00 Dose: 1 cap Famotidine (Pepcid) 40 mg PO HS [facility] Last Admin: 06/27/18 21:47 Dose: 40 mg Hydralazine HCl (Apresoline) 50 mg PO Q12 [facility] Last Admin: 06/28/18 08:05 Dose: 50 mg Hydrochlorothiazide (Hydrodiuril) 25 mg PO DAILY [facility] Last Admin: 06/28/18 08:05 Dose: 25 mg Levothyroxine Sodium (Synthroid) 50 mcg PO 0600 [facility] Last Admin: 06/28/18 06:19 Dose: 50 mcg Lisinopril (Zestril) 40 mg PO QPM@1700 [facility] Last Admin: 06/28/18 17:51 Dose: Not Given Metoprolol Tartrate (Lopressor) 50 mg PO Q12 [facility] Last Admin: 06/28/18 08:03 Dose: 50 mg Multivitamins/Minerals (Therapeutic-M Tab) 1 tab PO DAILY [facility] Last Admin: 06/28/18 08:05 Dose: 1 tab - Labs Labs: 06/26/18 05:30 06/26/18 05:30 - Constitutional Appears: No Acute Distress - Head Exam Head Exam: ATRAUMATIC - Eye Exam Eye Exam: Scleral icterus - ENT Exam ENT Exam: Mucous Membranes Moist - Neck Exam Neck Exam: absent: Meningismus - Respiratory Exam Respiratory Exam: absent: Rales, Rhonchi, Wheezes, Respiratory Distress - Cardiovascular Exam Cardiovascular Exam: REGULAR RHYTHM, +S1, +S2 - GI/Abdominal Exam GI & Abdominal Exam: Soft. absent: Tenderness - Rectal Exam Rectal Exam: Deferred - Neurological Exam Neurological Exam: Alert, Oriented x3 - Psychiatric Exam Psychiatric exam: Normal Affect - Skin Skin Exam: Dry, Intact Assessment and Plan - Assessment and Plan (Free Text) Assessment: 73 yo female with history of HTN, HLD and Asthma brought in and admitted in [facility] on 06/19/18 after she suddenly had numbness and weakness of the left side which was preceded with right sided headache. 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 When patient was hemodynamically and neurologically stable she was transferred to [facility] and admitted in Acute Rehab to continue her therapy. 1. Acute Right Basal Ganglia Infarct continue Plavix, ASA, statin and BP control physiatry consult with Dr Garcia continue PT/OT 2. HTN BP stable continue Amlodipine, HCTZ, Lisinopril, Metoprolol 3. HLD continue Lipitor 10mg PO daily 4. Asthma asymptomatic 5. DVT prophylaxis Lovenox 40mg SC daily
[2018-06-29] MEDS: Levothyroxine 50 MCG TAB PO SCH (06:11)
[2018-06-29 07:02] LABS: HEMOGLOBIN 11.5 g/dL (12.0-16.0); MEAN CELL VOLUME 79.6 fl (81.0-99.0); MEAN CORPUSCULAR HEMOGLOBIN 25.7 pg (27.0-31.0); MEAN CORPUSCULAR HGB CONC 32.3 g/dL (33.0-37.0); RBC 4.47 Mil/uL (3.80-5.20); RED CELL DISTRIBUTION WIDTH 16.7 % (11.5-14.5); WHITE BLOOD COUNT 4.2 K/uL (4.8-10.8)
[2018-06-29 07:18] LABS: CALCIUM 9.7 mg/dL (8.4-10.2)
[2018-06-29] MEDS: Albuterol-Ipratrop 3 mg / 0.5 (3 ml) UD IH SCH ×4 (07:18→19:18)
[2018-06-29] MEDS: Multivitamin With Minerals Tab PO SCH (08:47)
[2018-06-29] MEDS: Enoxaparin 40 mg Syringe SC SCH (08:48)
[2018-06-29] MEDS: Aspirin 325 mg EC Tablets PO SCH (08:49)
[2018-06-29] MEDS ORDERED: Ergocalciferol 50,000 Intl Units Cap PO SCH (09:00)
--- NOTE | 2018-06-29 13:27 | PSY.TMCNF ---
Nursing - Vital Signs Vital Signs (Last 8 hours): Vital Signs 06/29/18 06/29/18 06/29/18 08:38 08:47 08:49 Temperature 98.0 F Pulse Rate 81 98 H 98 H Respiratory 21 Rate Blood Pressure 151/73 H 144/60 144/60 O2 Sat by Pulse 98 Oximetry 06/29/18 13:08 Temperature 98.0 F Pulse Rate 98 H Respiratory 21 Rate Blood Pressure 144/60 O2 Sat by Pulse Oximetry Pain: 0 - Precautions: Precautions: Fall Prevention - Medications/Other Issues Comment: Pt at low nutritional risk. no goals. Follow-up due on 07/04/2018 - Consults Comment: Dr. Garcia - Toileting Toileting: Modified Independent - Bladder Management Bladder Pattern: Normal Voiding Method: Toilet Bladder Management: Modified Independent Frequency of Accidents: 0 - Bowel Management Bowel Pattern: Normal Bowel Management: Modified Independent Frequency of Accidents: 0 - Transfers Transfers: Supervision - ADL's ADL's: Supervision - Patient/Family Teaching Comments: CARE POST CVA AND SAFETY PRECAUTIONS - Goals/Time Frame Comments: PER MULTIDISCIPLINARY CARE PLAN GOALS - Provider Provider: SABRINA BOLIVARN RN CRRN Physical Therapy - Bed Mobility Bed Mobility: Modified Independent - Transfers Wheelchair to Mat: Supervision Sit to Stand: Supervision - Ambulation Level of Assistance: Supervision Distance (ft.): 200 Assistive Devices: Single point cane - Stair Negotiation Stairs: Level of Assistance: Supervision Number of Stairs: 12 Handrails: Left - Standing Balance Static Stand: Modified [place] with assistive device Dynamic Stand: Supervision, Contact Guard Assist - Pain Pain (assessed during therapy session): 0 - Insight/Carryover Insight/Carryover: Good - Patient/Family Education Comment: CVA recovery, safety - Assessment/Plan Assessment: Pt currently performs bed mobility mod I, transfers with S, gait with SPC and S, and stair negotiation with S using handrail. Trialed ambulation without AD and CGA. Pt will continue to benefit from skilled PT interventions to address deficits, reduce fall risk, and maximize functional independence. - Goals Timeframe: 1 week Goals: SIt < > supine (I). All functional transfers (I). Pt will ambulate 1000 ft on even/uneven surfaces mod I. Pt will ascend/descend flight of stairs mod I - Provider License Number: [id number] Occupational Therapy - Arousal/Attention/Orientation Patient Orientation: Person, Place, Time, Appropriate to Age, Appropriate to Situation - ADL/IADL Self Feeding: Set-up Help Grooming: Set-up Help Bathing-Upper Extremity: Set-up Help Bathing-Lower Extremity: Supervision, Verbal Cues, Set-up Help Dressing-Upper Extremity: Set-up Help Dressing-Lower Extremity: Supervision, Set-up Help - Sitting Balance Static Sitting: Independent without upper extremity support Dynamic Sitting: Requires supervision - Transfers Wheelchair to Bed Transfers: Supervision Toilet Transfers: Supervision Tub Transfers: Supervision, Verbal Cues - Wheelchair Management Level of Assistance: Supervision Distance (ft.): 150 - Upper Extremity Status Right Upper Extremity Comment: AROM WFLs Left Upper Extremity Comment: AROM R shoulder approx 90 degrees. PROM WFLs - Pain Pain (assessed during therapy session): 0 - Insight/Carryover Insight/Carryover: Good - Patient/Family Education Comment: CVA recovery, safety - Assessment/Plan Assessment: Pt currently performs bed mobility mod I, transfers with S, gait with SPC and S, and stair negotiation with S using handrail. Trialed ambulation without AD and CGA. Pt will continue to benefit from skilled PT interventions to address deficits, reduce fall risk, and maximize functional independence. - Goals Timeframe: 1 week Goals: SIt < > supine (I). All functional transfers (I). Pt will ambulate 1000 ft on even/uneven surfaces mod I. Pt will ascend/descend flight of stairs mod I - Provider Therapist: GABBY Collins/[facility] - Plan Assessment: Pt currently performs bed mobility mod I, transfers with S, gait with SPC and S, and stair negotiation with S using handrail. Trialed ambulation without AD and CGA. Pt will continue to benefit from skilled PT interventions to address deficits, reduce fall risk, and maximize functional independence. Recreational Therapy - Socialization Level of Socialization: Initiates/interacts freely with care givers and peer - Assessment Assessment/Plan: Pt currently performs bed mobility mod I, transfers with S, gait with SPC and S, and stair negotiation with S using handrail. Trialed ambulation without AD and CGA. Pt will continue to benefit from skilled PT interventions to address deficits, reduce fall risk, and maximize functional independence. - Provider Therapist: Jeane Aguiar, [employer] #[id number] Nutrition - Current Diet Current Diet/ Supplement/ Feedings: Heart healthy:2 gram Na diet ensure plus 8 ounces 2 per day - Appetite Percent Meal Consumed: 75-100% - Comments Comments: CARE POST CVA AND SAFETY PRECAUTIONS - Assessment/Goals/Time Frame Assessment/Goals/Time Frame: Pt at low nutritional risk. no goals. Follow-up due on 07/04/2018 - Provider Provider: Flora Johnson RD Case Management - Discharge Plan Discharge Plan: Home with significant other/family Rehabilitation Plan - Treatment Plan Treatment Plan: Physical Therapy, Occupational Therapy, Dietary, Patient/Family Education - Discharge Plan Estimated Date of Discharge: 07/02/18 Discharge to: Home
--- NOTE | 2018-06-29 14:05 | CP.PCM.PN ---
Subjective - Date & Time of Evaluation Date of Evaluation: 06/29/18 Time of Evaluation: 14:03 - Subjective Subjective: Patient seen in the room with family present and in good spirits. had questions about discharge and we discussed how this is going to be set up she felt relieved with the information provided Objective - Vital Signs/Intake and Output Vital Signs (last 24 hours): Temp Pulse Resp BP Pulse Ox 98.0 F 98 H 21 144/60 98 06/29/18 13:08 06/29/18 13:08 06/29/18 13:08 06/29/18 13:08 06/29/18 08:38 - Medications Medications: Current Medications Acetaminophen (Tylenol 325mg Tab) 650 mg PO Q8 PRN PRN Reason: Pain scale 1-10. Last Admin: 06/29/18 10:01 Dose: 650 mg Albuterol/Ipratropium (Duoneb 3 Mg/0.5 Mg (3 Ml) Ud) 3 ml IH RQID [facility] Last Admin: 06/29/18 11:44 Dose: 3 ml Amlodipine Besylate (Norvasc) 10 mg PO DAILY [facility] Last Admin: 06/29/18 08:49 Dose: 10 mg Artificial Tears (Refresh Opth Soln) 0.6 ml OU Q6 PRN PRN Reason: Dry eyes Aspirin (Ecotrin) 325 mg PO DAILY [facility] Last Admin: 06/29/18 08:49 Dose: 325 mg Atorvastatin Calcium (Lipitor) 10 mg PO HS [facility] Last Admin: 06/28/18 21:21 Dose: 10 mg Clopidogrel Bisulfate (Plavix) 75 mg PO DAILY [facility] Last Admin: 06/29/18 08:48 Dose: 75 mg Docusate Sodium (Colace) 100 mg PO BID [facility] Last Admin: 06/29/18 08:50 Dose: 100 mg Enoxaparin Sodium (Lovenox) 40 mg SC DAILY [facility] PRN Reason: Protocol Last Admin: 06/29/18 08:48 Dose: 40 mg Ergocalciferol (Drisdol 50,000 Intl Units Cap) 1 cap PO Q7D [facility] Last Admin: 06/22/18 19:00 Dose: 1 cap Famotidine (Pepcid) 40 mg PO HS [facility] Last Admin: 06/28/18 21:21 Dose: 40 mg Hydrochlorothiazide (Hydrodiuril) 25 mg PO DAILY [facility] Last Admin: 06/29/18 08:47 Dose: 25 mg Levothyroxine Sodium (Synthroid) 50 mcg PO 0600 [facility] Last Admin: 06/29/18 06:11 Dose: 50 mcg Lisinopril (Zestril) 40 mg PO QPM@1700 [facility] Last Admin: 06/28/18 17:51 Dose: Not Given Metoprolol Tartrate (Lopressor) 50 mg PO Q12 [facility] Last Admin: 06/29/18 08:47 Dose: 50 mg Multivitamins/Minerals (Therapeutic-M Tab) 1 tab PO DAILY [facility] Last Admin: 06/29/18 08:47 Dose: 1 tab - Labs Labs: 06/29/18 05:12 06/29/18 05:12
[2018-06-29] MEDS: Ergocalciferol 50,000 Intl Units Cap PO SCH (21:11)
[2018-06-30] MEDS: Levothyroxine 50 MCG TAB PO SCH (06:07)
[2018-06-30] MEDS: Albuterol-Ipratrop 3 mg / 0.5 (3 ml) UD IH SCH ×4 (07:40→19:58)
[2018-06-30] MEDS: Enoxaparin 40 mg Syringe SC SCH (08:13)
[2018-06-30] MEDS: Aspirin 325 mg EC Tablets PO SCH (08:14)
[2018-06-30] MEDS: Multivitamin With Minerals Tab PO SCH (08:16)
--- NOTE | 2018-06-30 16:23 | CP.PCM.PN ---
Subjective - Date & Time of Evaluation Date of Evaluation: 06/30/18 Time of Evaluation: 11:30 - Subjective Subjective: Patient seen and examined. Denied any complaint Objective - Vital Signs/Intake and Output Vital Signs (last 24 hours): Temp Pulse Resp BP Pulse Ox 97.0 F L 73 22 129/89 99 06/30/18 09:10 06/30/18 09:10 06/30/18 09:10 06/30/18 09:10 06/30/18 09:10 - Medications Medications: Current Medications Acetaminophen (Tylenol 325mg Tab) 650 mg PO Q8 PRN PRN Reason: Pain scale 1-10. Last Admin: 06/30/18 04:09 Dose: 650 mg Albuterol/Ipratropium (Duoneb 3 Mg/0.5 Mg (3 Ml) Ud) 3 ml IH RQID [facility] Last Admin: 06/30/18 16:05 Dose: 3 ml Amlodipine Besylate (Norvasc) 10 mg PO DAILY [facility] Last Admin: 06/30/18 08:16 Dose: 10 mg Artificial Tears (Refresh Opth Soln) 0.6 ml OU Q6 PRN PRN Reason: Dry eyes Aspirin (Ecotrin) 325 mg PO DAILY [facility] Last Admin: 06/30/18 08:14 Dose: 325 mg Atorvastatin Calcium (Lipitor) 10 mg PO HS [facility] Last Admin: 06/29/18 21:12 Dose: 10 mg Clopidogrel Bisulfate (Plavix) 75 mg PO DAILY [facility] Last Admin: 06/30/18 08:16 Dose: 75 mg Docusate Sodium (Colace) 100 mg PO BID [facility] Last Admin: 06/30/18 08:14 Dose: 100 mg Enoxaparin Sodium (Lovenox) 40 mg SC DAILY [facility] PRN Reason: Protocol Last Admin: 06/30/18 08:13 Dose: 40 mg Ergocalciferol (Drisdol 50,000 Intl Units Cap) 1 cap PO TUE [facility] Last Admin: 06/29/18 21:11 Dose: 1 cap Famotidine (Pepcid) 40 mg PO HS [facility] Last Admin: 06/29/18 21:12 Dose: 40 mg Hydrochlorothiazide (Hydrodiuril) 25 mg PO DAILY [facility] Last Admin: 06/30/18 08:18 Dose: 25 mg Levothyroxine Sodium (Synthroid) 50 mcg PO 0600 [facility] Last Admin: 06/30/18 06:07 Dose: 50 mcg Lisinopril (Zestril) 40 mg PO QPM@1700 [facility] Last Admin: 06/29/18 17:24 Dose: 40 mg Metoprolol Tartrate (Lopressor) 50 mg PO Q12 [facility] Last Admin: 06/30/18 08:15 Dose: 50 mg Multivitamins/Minerals (Therapeutic-M Tab) 1 tab PO DAILY [facility] Last Admin: 06/30/18 08:16 Dose: 1 tab - Labs Labs: 06/29/18 05:12 06/29/18 05:12 - Constitutional Appears: No Acute Distress - Head Exam Head Exam: ATRAUMATIC - Eye Exam Eye Exam: absent: Scleral icterus - ENT Exam ENT Exam: Mucous Membranes Moist - Neck Exam Neck Exam: absent: Meningismus - Respiratory Exam Respiratory Exam: absent: Rales, Rhonchi, Wheezes, Respiratory Distress - GI/Abdominal Exam GI & Abdominal Exam: Soft. absent: Tenderness - Rectal Exam Rectal Exam: Deferred - Neurological Exam Neurological Exam: Alert, Oriented x3 - Psychiatric Exam Psychiatric exam: Normal Affect - Skin Skin Exam: Dry, Intact Assessment and Plan - Assessment and Plan (Free Text) Assessment: 73 yo female with history of HTN, HLD and Asthma brought in and admitted in [facility] on 06/19/18 after she suddenly had numbness and weakness of the left side which was preceded with right sided headache. 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 When patient was hemodynamically and neurologically stable she was transferred to [facility] and admitted in Acute Rehab to continue her therapy. 1. Acute Right Basal Ganglia Infarct continue Plavix, ASA, statin and BP control continue PT/OT 2. HTN BP stable continue Amlodipine, HCTZ, Lisinopril, Metoprolol 3. HLD continue Lipitor 10mg PO daily 4. Asthma asymptomatic 5. DVT prophylaxis Lovenox 40mg SC daily
[2018-07-01] MEDS: Levothyroxine 50 MCG TAB PO SCH (06:10)
[2018-07-01] MEDS: Albuterol-Ipratrop 3 mg / 0.5 (3 ml) UD IH SCH ×4 (07:42→19:14)
[2018-07-01] MEDS: Aspirin 325 mg EC Tablets PO SCH (08:37)
[2018-07-01] MEDS: Multivitamin With Minerals Tab PO SCH (08:38)
[2018-07-01] MEDS: Enoxaparin 40 mg Syringe SC SCH (08:38)
[2018-07-02] MEDS: Levothyroxine 50 MCG TAB PO SCH (06:28)
[2018-07-02] MEDS: Albuterol-Ipratrop 3 mg / 0.5 (3 ml) UD IH SCH ×2 (07:31→11:03)
[2018-07-02 07:38] VITALS: BP 136/96; PULSE 77; RESP 22; TEMP 97.7; O2SAT 100
[2018-07-02] MEDS: Multivitamin With Minerals Tab PO SCH (08:22)
[2018-07-02 08:23] LABS: HEMOGLOBIN 11.8 g/dL (12.0-16.0); MEAN CELL VOLUME 79.1 fl (81.0-99.0); MEAN CORPUSCULAR HEMOGLOBIN 26.1 pg (27.0-31.0); RBC 4.52 Mil/uL (3.80-5.20); RED CELL DISTRIBUTION WIDTH 16.6 % (11.5-14.5); WHITE BLOOD COUNT 4.2 K/uL (4.8-10.8)
[2018-07-02] MEDS: Aspirin 325 mg EC Tablets PO SCH (08:23)
[2018-07-02 09:00] LABS: CALCIUM 9.7 mg/dL (8.4-10.2)
--- NOTE | 2018-07-02 11:13 | CP.PCM.DIS ---
Provider - Provider Date of Admission: 06/22/18 15:30 Attending physician: William Barragan MD Time Spent in preparation of Discharge (in minutes): 30 Hospital Course - Lab Results Lab Results: Most Recent Lab Values WBC 4.2 K/uL (4.8-10.8) L 07/02/18 07:59 RBC 4.52 Mil/uL (3.80-5.20) 07/02/18 07:59 Hgb 11.8 g/dL (12.0-16.0) L 07/02/18 07:59 Hct 35.7 % (34.0-47.0) 07/02/18 07:59 MCV 79.1 fl (81.0-99.0) L 07/02/18 07:59 MCH 26.1 pg (27.0-31.0) L 07/02/18 07:59 MCHC 33.0 g/dL (33.0-37.0) 07/02/18 07:59 RDW 16.6 % (11.5-14.5) H 07/02/18 07:59 Plt Count 191 K/uL (130-400) 07/02/18 07:59 Sodium 138 mmol/l (132-148) 07/02/18 07:59 Potassium 4.2 MMOL/L (3.6-5.0) 07/02/18 07:59 Chloride 99 mmol/L (98-107) 07/02/18 07:59 Carbon Dioxide 26 mmol/L (22-30) 07/02/18 07:59 Anion Gap 17 (10-20) 07/02/18 07:59 BUN 42 mg/dl (7-17) H 07/02/18 07:59 Creatinine 1.2 mg/dl (0.7-1.2) 07/02/18 07:59 Est GFR ( Amer) 53 07/02/18 07:59 Est GFR (Non-Af Amer) 44 07/02/18 07:59 Random Glucose 100 mg/dL (65-105) 07/02/18 07:59 Calcium 9.7 mg/dL (8.4-10.2) 07/02/18 07:59 - Hospital Course Hospital Course: 73 yo female with history of HTN, HLD and Asthma brought in and admitted in [facility] on 06/19/18 after she suddenly had numbness and weakness of the left side which was preceded with right sided headache. 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 When patient was hemodynamically and neurologically stable she was transferred to [facility] and admitted in Acute Rehab to continue her therapy. Pt tolerated PT well, stable for discharge home with follow up PCP and Neurology in one week. 1. Acute Right Basal Ganglia Infarct continue Plavix, ASA, statin and BP control continue PT/OT 2. HTN BP stable continue Amlodipine, HCTZ, Lisinopril, Metoprolol 3. HLD continue Lipitor 10mg PO daily 4. Asthma asymptomatic 5. DVT prophylaxis Lovenox 40mg SC daily Discharge Exam - Head Exam Head Exam: ATRAUMATIC, NORMOCEPHALIC - Eye Exam Eye Exam: EOMI, Normal appearance, PERRL - ENT Exam ENT Exam: Mucous Membranes Moist, Normal Oropharynx - Respiratory Exam Respiratory Exam: Clear to PA & Lateral, NORMAL BREATHING PATTERN - Cardiovascular Exam Cardiovascular Exam: RRR, +S1, +S2 - GI/Abdominal Exam GI & Abdominal Exam: Normal Bowel Sounds, Soft. absent: Mass, Organomegaly, Tenderness - Extremities Exam Extremities exam: normal capillary refill, pedal pulses present - Back Exam Back exam: absent: CVA tenderness (L), CVA tenderness (R) - Neurological Exam Neurological exam: Alert, Reflexes Normal - Psychiatric Exam Psychiatric exam: Normal Affect, Normal Mood - Skin Skin Exam: Dry, Normal Color, Warm Discharge Plan - Discharge Medications Prescriptions: amLODIPine [Norvasc] 10 mg PO DAILY #30 tab Aspirin [Ecotrin] 325 mg PO DAILY #30 tablet. Atorvastatin [Lipitor] 10 mg PO HS #30 tab Clopidogrel [Plavix] 75 mg PO DAILY #30 tab Ergocalciferol [Drisdol 50,000 Intl Units Cap] 50,000 iu PO Q7D #7 cap Famotidine [Pepcid] 40 mg PO HS #30 tab hydroCHLOROthiazide [Hydrodiuril] 25 mg PO DAILY #30 tab Levothyroxine [Synthroid] 50 mcg PO 0600 #30 tab Lisinopril [Zestril] 40 mg PO QPM #30 tab Metoprolol Tartrate [Lopressor] 50 mg PO Q12 #60 tab - Follow Up Plan Condition: GOOD Disposition: HOME/ ROUTINE Instructions: High Blood Pressure in Adults, Stroke (DC)
== END 2018-07-02 13:15 | disposition home or self-care (01) | DRG 57 ==
PROC: F07Z9ZZ Gait Training/Functional Ambulation Treatment (ICD-10-PCS; principal; 2018-06-22)
PROC: F07L6ZZ Therapeutic Exercise Treatment of Musculoskeletal System - Lower Back / Lower Extremity (ICD-10-PCS; 2018-06-22)
DX: I69.354 Hemiplegia and hemiparesis following cerebral infarction affecting left non-dominant side (principal); E78.5 Hyperlipidemia, unspecified; I10 Essential (primary) hypertension; J45.909 Unspecified asthma, uncomplicated; Z87.891 Personal history of nicotine dependence; M19.012 Primary osteoarthritis, left shoulder; M19.011 Primary osteoarthritis, right shoulder; L60.3 Nail dystrophy; B35.1 Tinea unguium; K59.00 Constipation, unspecified